=== PATIENT | female | born 1975 | race Caucasian/White ===

== ENCOUNTER 2023-04-24 08:00 | Outpatient (NON) | payer OTHER, SELFPAY | END 2023-04-24 08:01 | disposition home or self-care (01) | LOC: ANHLAB 04-25 07:28 | PROVIDERS: PCP Nurse Practitioner Family; Visit Provider Internal Medicine Gastroenterology | DX: Z12.11 Encounter for screening for malignant neoplasm of colon (principal) | CPT/HCPCS: 88305 ==

== ENCOUNTER 2023-04-24 09:05 | Day surgery (SDC) | payer OTHER, SELFPAY ==
[2023-03-13 08:52] VITALS: BMI 36.3
[2023-04-05 08:42] VITALS: BMI 36.3
--- NOTE | 2023-04-21 15:01 | WPDANESEPPF ---
Anes - Initial Pre Proc Eval Procedure: Operation Date: 04/24/23 11:00 Proposed Procedures p Screening Colonoscopy - Nathen Escalante MD Date/Time: 04/21/23 15:01 Surgeon: Nathen Escalante MD Pre Op Diagnosis: Neoplasm Screening Patient Data Age: 47 Gender: F Height: 1.68 m Weight: 102 kg Allergies Allergy/AdvReac Type Severity Reaction Status Date / Time nut - unspecified AdvReac Intermediate Swelling Verified 04/24/23 09:49 of Lip/Tongue/Throat Home Medications Medication Instructions Recorded Confirmed Type esomeprazole magnesium 20 mg 20 mg PO DAILY 01/06/22 04/24/23 History capsule,delayed release (Nexium 24HR) escitalopram oxalate 10 mg tablet 10 mg PO DAILY #90 tabs 12/12/22 04/24/23 Rx (Lexapro) ramipril 10 mg capsule 10 mg PO DAILY #90 caps 02/25/23 04/24/23 Rx sodium,potassium,mag sulfates 17.5 See Rx Instructions PO .COMPLEX 03/13/23 04/24/23 Rx gram-3.13 gram-1.6 gram oral soln #354 mL (Suprep Bowel Prep Kit) Patient hx anesthesia problems: none Family hx anesthesia problems: none Results Review: All pre-operative results and documents have been reviewed as part of the pre-operative evaluation. [facility] Past Medical History Medical History (Updated 04/21/23 @ 15:01 by Yvon Contreras MD) Anxiety BMI 34.0-34.9,adult BMI 36.0-36.9,adult Hyperlipidemia Hypertension Obesity Well adult exam Surgical History Surgical History History of D&C History of endometrial ablation History of oral surgery Family History Family History Father Hypertension Mother Heart disease Hypertension Acute myocardial infarction Other Carcinoma of colon Social History Social History Smoking status: Never smoker Second hand tobacco smoke exposure: No Alcohol intake: current Substance use: never Substance use type: does not use Lack of Transportation: No Lack of Food: Never True Current Housing: I Have Housing Concerned About Future Housing: No Difficulty Paying Gas/Electric Bills: No Difficulty Paying for Meds: No Currently Unemployed: No Education: Master's Degree or Higher Difficulty w/ Childcare or Family Care: No Living arrangements: with family Occupation/Education: occupation Additional occupation/education comments: [employer] Gender identity (if verbalized by the patient): Female Spiritual care concerns: No Anes - Eval Final PreProcedure Day of Procedure 04/21/23 15:01 Patient weight: obese Heart: regular rate and rhythm Lungs: clear to auscultation and normal air movement Airway: Mallampati scale class II Neurological: alert and oriented Last oral intake: >/= 8 hours ASA classification: III Emergent: no Anesthetic plan: proceed Anesthesia type and monitoring: general GIVS Results Review: All pre-operative results and documents have been reviewed as part of the pre-operative evaluation. Informed Consent: The patient's anesthetic plan and its attendant risks and benefits were discussed with the patient/family/POA. Questions were solicited and answers provided to the satisfaction of the patient/family/POA.
--- NOTE | 2023-04-24 09:59 | PM.HPGS ---
History of Present Illness History of Present Illness Consent: Risks, benefits, and alternatives have been discussed and questions answered. Patient agrees to proceed with procedure. Chief complaint: Neoplasm Screening Narrative: Rose Gill is a 47 year old female Presents for screening colonoscopy. Patient's current weight appetite and bowel movements are normal. Patient denies abdominal pain. She has had no bleeding. Family history is significant for grandmother had colon cancer. No known first-degree relatives with polyps or cancer. Review of Systems Review of Systems: Review of systems noncontributory. [facility] Past Medical History Medical History (Updated 04/21/23 @ 15:01 by Yvon Contreras MD) Anxiety BMI 34.0-34.9,adult BMI 36.0-36.9,adult Hyperlipidemia Hypertension Obesity Well adult exam Surgical History Surgical History History of D&C History of endometrial ablation History of oral surgery Family History Family History Father Hypertension Mother Heart disease Hypertension Acute myocardial infarction Other Carcinoma of colon Social History Social History Smoking status: Never smoker Second hand tobacco smoke exposure: No Alcohol intake: current Substance use: never Substance use type: does not use Lack of Transportation: No Lack of Food: Never True Current Housing: I Have Housing Concerned About Future Housing: No Difficulty Paying Gas/Electric Bills: No Difficulty Paying for Meds: No Currently Unemployed: No Education: Master's Degree or Higher Difficulty w/ Childcare or Family Care: No Living arrangements: with family Occupation/Education: occupation Additional occupation/education comments: [employer] Gender identity (if verbalized by the patient): Female Spiritual care concerns: No Meds Home Medications and Allergies Home Medications Medication Instructions Recorded Confirmed Type esomeprazole magnesium 20 mg 20 mg PO DAILY 01/06/22 04/24/23 History capsule,delayed release (Nexium 24HR) escitalopram oxalate 10 mg tablet 10 mg PO DAILY #90 tabs 12/12/22 04/24/23 Rx (Lexapro) ramipril 10 mg capsule 10 mg PO DAILY #90 caps 02/25/23 04/24/23 Rx sodium,potassium,mag sulfates 17.5 See Rx Instructions PO .COMPLEX 03/13/23 04/24/23 Rx gram-3.13 gram-1.6 gram oral soln #354 mL (Suprep Bowel Prep Kit) Allergies Allergy/AdvReac Type Severity Reaction Status Date / Time nut - unspecified AdvReac Intermediate Swelling Verified 04/24/23 09:49 of Lip/Tongue/Throat Exam Narrative: Physical exam reveals patient to be alert. Vital signs stable. HEENT exam is unremarkable. Patient is anicteric. Lungs are clear to auscultation and percussion. Heart is without murmur or extra sounds. Abdomen bowel sounds are present soft nontender with no organomegaly. Digital external rectal exam is normal. Assessment and Plan Assessment and plan (1) Screen for colon cancer: Code(s): Z12.11 - Encounter for screening for malignant neoplasm of colon Status: Acute Assessment and Plan: Patient presents today for colon cancer screening. Further recommendations may be given after endoscopy.
[2023-04-24 10:00] VITALS: BP 153/100; PULSE 71; RESP 14; TEMP 36.5; O2SAT 98
[2023-04-24] MEDS: LACTATED RINGERS 1,000 ML 150 ML IV CONT (10:10)
[2023-04-24 11:30] VITALS: BP 129/94; PULSE 72; RESP 20; O2SAT 100
[2023-04-24 11:40] VITALS: BP 134/93; PULSE 63; RESP 18; O2SAT 98
[2023-04-24 11:50] VITALS: BP 135/80; PULSE 68; RESP 20; O2SAT 100
--- NOTE | 2023-04-24 14:21 | WPDANESPN ---
Anes - Prog Note Post-Op Date/Time: 04/24/23 14:22 Cardiovascular status: normal Respiratory status: normal Airway patency: baseline Mental status: baseline Post-Op hydration status: normal Vital Signs: Last Vital Signs Temp 36.5 C 04/24/23 10:00 Pulse 68 04/24/23 11:50 Resp 20 04/24/23 11:50 BP 135/80 04/24/23 11:50 Pulse Ox 100 04/24/23 11:50 O2 Del Method Room Air 04/24/23 11:50 Pain Score (VAS): 0 I/O: Intake & Output 04/23/23 04/24/23 04/24/23 23:59 07:59 15:59 Intake Total 700 Balance 700 Post-procedural complaints: none Patient Feedback: Patient satisfied with anesthetic care.
== END 2023-04-24 12:00 | disposition home or self-care (01) ==
PROVIDERS: PCP Nurse Practitioner Family; Visit Provider Internal Medicine Gastroenterology
PROC: 0DJD8ZZ Inspection of Lower Intestinal Tract, Via Natural or Artificial Opening Endoscopic (ICD-10-PCS; CPT 45378; principal; 2023-04-24 11:00)
DX: Z12.11 Encounter for screening for malignant neoplasm of colon (principal)
CPT/HCPCS: 45385